=== PATIENT | female | born 1950 | race Caucasian/White ===

== ENCOUNTER 2023-02-25 10:36 | Outpatient (OUT) | payer MEDICARE, SELFPAY ==
--- NOTE | 2023-02-25 11:45 | MR_ITS ---
[address] [address] Patient Name: VU APPLE MRN: [id number] date: 1950 Sex: F Assigned Patient Location: LAB Current Patient Location: LAB Accession/Order Number: [id number] Exam Date: 02/25/2023 11:45 Report Date: 02/25/2023 14:41 At the request of: LANE FISHER Procedure: MR head/brain wo con MRI BRAIN WITHOUT CONTRAST, 02/25/2023. HISTORY: Altered mental status. COMPARISON: CT head, 02/18/2014. TECHNIQUE: Sagittal and axial T1, axial T2, FLAIR, diffusion, and T2 gradient images obtained. FINDINGS: Paranasal sinuses clear. Mastoid air cells are clear. Nasopharynx normal. Parachute Marker spaces normal. Prior cataract surgery. Extracranial soft tissue structures are unremarkable. No hydrocephalus. Mild brain atrophy. No extra-axial fluid collection. Moderate chronic microvascular ischemic changes in the cerebral white matter. No diffusion restriction. No evidence of acute ischemic infarction. No masses. No hemorrhagic lesions. IMPRESSION: 1. Mild brain atrophy. Moderate chronic microvascular ischemic changes. 2. No acute infarction. No masses. Electronically authenticated by: MARCO ANTONIO DE LA VEGA Date: 02/25/2023 14:41
[2023-02-25 12:00] LABS: Thyroid Stimulating Hormone 1.729 uIU/mL (0.358-3.740)
== END 2023-02-25 10:37 ==
LOC: LAB 10:36
PROVIDERS: Visit Provider Nurse Practitioner Adult Health
DX: R41.89 Other symptoms and signs involving cognitive functions and awareness (principal)
CPT/HCPCS: 36415; 70551; 82607; 82746; 84443